=== PATIENT | male | born 1990 | race African-American/Black ===

== ENCOUNTER 2017-01-06 14:14 | Emergency (ER) | payer SELFPAY ==
[~2017-01-06] VITALS: Ht 172.7 cm; Wt 109.0 kg
[2017-01-06] MEDS ORDERED: LISI-186 PO (14:29)
[2017-01-06] MEDS ORDERED: IBUPROFEN 600MG TABLET PO ONE (15:45)
[2017-01-06 15:59] VITALS: BP 170/94
[2017-01-06] MEDS ORDERED: IBUPROFEN 600MG TABLET ONE (16:04)
== END 2017-01-06 17:48 | disposition home or self-care (01) ==
LOC: ER 14:34
DX: M54.5 Low back pain (principal); I10 Essential (primary) hypertension; V43.52XA Car driver injured in collision with other type car in traffic accident, initial encounter; Y92.488 Other paved roadways as the place of occurrence of the external cause
CPT/HCPCS: 72110; 99284

== ENCOUNTER 2019-02-09 04:48 | Emergency (ER) | payer MEDICAID, OTHER ==
[~2019-02-09] VITALS: Ht 177.8 cm; Wt 105.0 kg
[~2019-02-09 04:48] MED LIST: LISI-186 PO
[2019-02-09] MEDS: KETOROLAC 60MG/2ML VIAL IM STA (06:45)
[2019-02-09] MEDS: CYCLOBENZAPRINE 10MG TABLET PO ONE (06:46)
[2019-02-09 07:34] LABS: CLARITY URINE CLEAR (CLEAR); COLOR URINE YELLOW (YELLOW); KETONES URINE TRACE (NEGATIVE); LEUKOCYTE ESTERASE URINE NEGATIVE (NEGATIVE); NITRITE URINE NEGATIVE (NEGATIVE); OCCULT BLOOD URINE NEGATIVE (NEGATIVE); PH URINE 7.5 (4.5-8.0); PROTEIN URINE NEGATIVE (NEGATIVE); SPECIFIC GRAVITY URINE 1.024 (1.005-1.030)
[2019-02-09] MEDS: HYDROCODONE/ACETAMINOPHEN 5/325MG TABLET PO STA (09:47)
[2019-02-09] MEDS: DEXAMETHASONE 10 MG/ML VIAL IM ONE (12:11)
[2019-02-09 14:00] VITALS: BP 147/85
== END 2019-02-09 14:31 | disposition home or self-care (01) ==
LOC: ER 04:48
DX: M54.5 Low back pain (principal); I10 Essential (primary) hypertension; F17.200 Nicotine dependence, unspecified, uncomplicated; Z79.899 Other long term (current) drug therapy; V49.88XA Car occupant (driver) (passenger) injured in other specified transport accidents, initial encounter; Y93.89 Activity, other specified; Y92.89 Other specified places as the place of occurrence of the external cause; Y99.8 Other external cause status
CPT/HCPCS: 72100; 81003; 96372; 99284; J1100; J1885; Z7610